=== PATIENT | male | born 1965 | race African-American/Black ===

== ENCOUNTER 2018-12-12 07:32 | Emergency (ER) | payer BC ==
[~2018-12-12] VITALS: Ht 170.2 cm; Wt 111.4 kg
[2018-12-12 07:37] VITALS: Ht 170.2 cm; Wt 111.4 kg
[2018-12-12] MEDS ORDERED: CYCLOBENZAPRINE5 MG PO (08:02)
[2018-12-12] MEDS ORDERED: HYDROCODON-ACE1 EAC2 PO (08:02)
[2018-12-12 08:26] VITALS: BP 179/97
== END 2018-12-12 08:27 | disposition home or self-care (01) ==
LOC: D.ER 07:32
DX: S29.012A Strain of muscle and tendon of back wall of thorax, initial encounter (principal); X50.0XXA Overexertion from strenuous movement or load, initial encounter; Y93.89 Activity, other specified; Y92.89 Other specified places as the place of occurrence of the external cause

== ENCOUNTER 2020-12-09 07:03 | Emergency (ER) | payer SELFPAY ==
[~2020-12-09] VITALS: Ht 170.2 cm; Wt 108.2 kg
[~2020-12-09 07:03] MED LIST: CYCLOBENZAPRINE5 MG PO; HYDROCODON-ACE1 EAC2 PO
[2020-12-09 07:12] VITALS: BP 184/112; Ht 170.2 cm; Wt 108.2 kg
[2020-12-09 07:35] LABS: BASOPHILS 0.5 % (0-2); EOSINOPHILS 1.1 % (0-7); HEMATOCRIT 43.2 % (42.0-54.0); HEMOGLOBIN 14.4 g/dL (13.5-17.5); LYMPHOCYTES 18.7 % (15-50); MCH 28.1 pg (26.0-34.0); MCHC 33.3 g/dL (31.0-37.0); MCV 84.5 fL (80.0-100.0); MEAN PLATELET VOLUME 9.5 fL (7.4-10.4); MONOCYTES 8.2 % (2-11); NEUTROPHILS 71.5 % (40-80); PLATELET COUNT 222 10x3/uL (130-400); RBC 5.11 10x6/uL (4.20-6.10); RDW 15.5 % (11.5-14.5); WBC 14.6 10x3/uL (4.8-10.8)
[2020-12-09 07:51] LABS: APTT 30.7 SECONDS (22.8-39.4); INR 1.17 (0.85-1.17); PROTIME 13.8 SECONDS (11.6-15.0)
[2020-12-09 07:55] LABS: CALC OSMOLALITY 282 mosm/kg (275-300); CALCIUM 9.1 mg/dL (8.5-10.1); CARBON DIOXIDE 24.2 mmol/L (21.0-32.0); CHLORIDE - SERUM 104 mmol/L (98-107); CREATININE - SERUM 1.5 mg/dL (0.6-1.3); GLUCOSE 144 mg/dL (74-106); POTASSIUM - SERUM 3.7 mmol/L (3.5-5.1); SODIUM 140 mmol/L (136-145); UREA NITROGEN 15 mg/dL (7-18); eGFR NON AFRICAN AMERICAN 52 mL/min (90-120)
[2020-12-09 08:00] LABS: ALBUMIN 3.7 g/dL (3.4-5.0); ALKALINE PHOSPHATASE 68 U/L (30-120); ALT (SGPT) 26 U/L (10-68); BILIRUBIN - TOTAL 0.59 mg/dL (0.2-1.3); LIPASE 787 U/L (73-393); PROTEIN - SERUM 8.6 g/dL (6.4-8.2)
[2020-12-09 08:01] LABS: TROPONIN-I < 0.017 ng/mL (0.000-0.060)
[2020-12-09 08:20] LABS: D-DIMER-QUANTITATIVE 2.35 ug/mLFEU (0.20-0.54)
[2020-12-09] MEDS ORDERED: ZOFRAN ODT4 MG/UDTAB PO (09:30)
[2020-12-09] MEDS ORDERED: HYDROCODON-ACE1 EA10 PO (09:30)
[2020-12-09] MEDS ORDERED: DOXYCYCLINE HY100 M2 PO (09:30)
[2020-12-09 10:37] LABS: NITRITE NEGATIVE (NEGATIVE)
[2020-12-09 10:38] LABS: BILIRUBIN NEGATIVE (NEGATIVE); KETONE NEGATIVE (NEGATIVE); UROBILINOGEN NORMAL mg/dL (< 2); WHITE CELLS - URINE 0-5 HPF (0-1)
[2020-12-09 10:39] LABS: BACTERIA FEW HPF (NONE SEEN)
== END 2020-12-09 10:38 | disposition home or self-care (01) ==
LOC: D.ER 07:03
PROVIDERS: Student in an Organized Health Care Education/Training Program
DX: K85.90 Acute pancreatitis without necrosis or infection, unspecified (principal); R10.32 Left lower quadrant pain; J18.9 Pneumonia, unspecified organism; J90 Pleural effusion, not elsewhere classified; R03.0 Elevated blood-pressure reading, without diagnosis of hypertension; I10 Essential (primary) hypertension; Z72.0 Tobacco use